=== PATIENT | male | born 1975 ===

== ENCOUNTER 2020-07-15 19:35 | Emergency (ER) ==
--- NOTE | 2020-07-15 19:52 | ER ---
Nurse's Notes [facility] Michael Mejia Age: 45 yrs Sex: Male : 1975 Arrival Date: 07/15/2020 Time: 19:35 Bed Waiting Private MD: Diagnosis: ED Course: 07/15 19:35 Patient arrived in ED. bp1 Administered Medications: No medications were administered Outcome: 19:51 Patient left the ED. ca1 Signatures: Brooklyn Watson RN RN ca1 Destiny Kim bp1
== END 2020-07-15 19:51 | disposition left against medical advice (07) ==
LOC: ER 19:35
DX: Z02.9 Encounter for administrative examinations, unspecified (principal)